=== PATIENT | female | born 1955 | race Hispanic/Latino ===

== ENCOUNTER 2024-12-01 15:44 | Emergency (ER) | payer OTHER ==
[2024-12-01] MEDS ORDERED: BENZONATATE 100 MG CAP PO ONE (16:21)
[2024-12-01 16:43] LABS: Influenza A Ag Negative; Influenza B Ag Negative; SARS-CoV-2 Antigen Rapid Res Negative (Negative)
--- NOTE | 2024-12-01 17:26 | EDPHYS ---
Physician Documentation [facility] Name: Rivka Naik Age: 69 yrs Sex: Female : 1955 Arrival Date: 12/01/2024 Time: 15:44 Bed 13 Private MD: ED Physician Avery Reagan HPI: 12/01 16:20 This 69 yrs old Female presents to ER via Ambulatory with complaints of Ear cp Pain, Congestion, Cough. 16:20 The patient presents with pain, that is acute. The complaints affect the right ear. cp 16:20 Onset: The symptoms/episode began/occurred this past Monday. Associated signs and cp symptoms: Pertinent positives: congestion, sore throat, cough, Pertinent negatives: fever, vomiting, diarrhea. Severity of symptoms: in the emergency department the symptoms are unchanged despite home interventions. Historical: - Allergies: 16:11 STATINS HMG COA REDUCTASE INHIBITORS; aa5 - PMHx: 16:11 Acid Reflux; Depressive disorder; Breast Cancer; aa5 - PSHx: 16:11 Right Mastectomy; Tubal ligation; Cholecystectomy; aa5 - Immunization history:: Adult Immunizations unknown. - Infectious Disease History:: Denies. - Social history:: Smoking status: Patient denies any tobacco usage or history of. ROS: 16:25 Constitutional: Negative for fever, poor PO intake, cp 16:25 ENT: Positive for ear pain, Negative for drainage from ear(s), difficulty swallowing, cp difficulty handling secretions, 16:25 Respiratory: Positive for cough, "sounds productive", Negative for wheezing, 16:25 Abdomen/GI: Negative for abdominal pain, vomiting, diarrhea, constipation, 16:25 Skin: Negative for rash, 16:25 All other systems are negative, Exam: 16:30 Constitutional: The patient appears in no acute distress, alert, awake, cp non-diaphoretic, non-toxic, well developed, well nourished, 16:30 Head/Face: Normocephalic, atraumatic. cp 16:30 Eyes: Periorbital structures: appear normal, Conjunctiva: normal, no exudate, no injection, Sclera: no appreciated abnormality, Lids and lashes: appear normal, bilaterally, 16:30 ENT: External ear(s): are unremarkable, Ear canal(s): are normal, clear, TM's: dullness, bilaterally, Nose: is normal, Mouth: Lips: moist, Oral mucosa: moist, Posterior pharynx: Airway: no evidence of obstruction, patent, erythema, that is mild, exudate, is not appreciated, 16:30 Neck: ROM/movement: Meningeal signs: are not present, nuchal rigidity, is not appreciated, Lymph nodes: no appreciated lymphadenopathy, 16:30 Chest/axilla: Inspection: normal, 16:30 Cardiovascular: Rate: tachycardic, Edema: is not appreciated, 16:30 Respiratory: the patient does not display signs of respiratory distress, Respirations: normal, no use of accessory muscles, no retractions, labored breathing, is not present, Breath sounds: decreased breath sounds, are not appreciated, stridor, is not appreciated, wheezing: is not appreciated, 16:30 Abdomen/GI: Inspection: abdomen appears normal, Palpation: abdomen is soft and non-tender, in all quadrants, 16:30 Skin: no rash present. Vital Signs: 15:49 BP 121 / 70; Pulse 105; Resp 16 S; Temp 98.4(O); Pulse Ox 99% on R/A; Weight 58.97 kg aa5 (R); Height 5 ft. 3 in. (R); 17:00 BP 148 / 78; Pulse 63; Resp 16; Temp 98.3; Pulse Ox 99% ; me1 15:49 Body Mass Index 23.03 (58.97 kg, 160.02 cm) aa5 MDM: 15:55 Medical Screening Exam initiated cp 17:25 Data reviewed: vital signs, nurses notes, lab test result(s), radiologic studies, plain cp films, and as a result, I will discharge patient. 17:25 Differential diagnosis: otitis media, otitis externa, ruptured TM, cerumen impaction, cp pneumonia, influenza, strep throat, COVID-19. I considered the following discharge prescriptions or medication management in the emergency department Medications were administered in the Emergency Department. See MAR. Care significantly affected by the following chronic conditions: Cancer. Counseling: I had a detailed discussion with the patient and/or guardian regarding the historical points, exam findings, and any diagnostic results supporting the discharge/admit diagnosis, lab results, radiology results, to return to the emergency department if symptoms worsen or persist or if there are any questions or concerns that arise at home. Response to treatment: the patient's symptoms have mildly improved after treatment, and as a result, I will discharge patient. 12/01 16:17 Order name: COVID-19 Ag + Flu A+B Ag cp 12/01 16:17 Order name: XRAY Chest Pa And Lat (2 Views) cp Administered Medications: 16:24 Drug: Tessalon Perle PO 200 mg PO once Route: PO; me1 17:30 Follow up: Response: No adverse reaction me1 Disposition: 12/02 16:23 Chart complete. cp 17:32 Co-signature as Attending Physician, Avery Reagan MD I reviewed the patient's care rn provided by the Advanced Practice Provider and agree with the diagnosis and treatment plan. Disposition Summary: 12/01/24 17:25 Discharge Ordered Notes: Location: Home cp Problem: new cp Symptoms: have improved cp Condition: Stable cp Diagnosis - Otalgia, right ear cp - Cough cp Followup: cp - With: Private Physician - When: 2 - 3 days - Reason: Worsening of condition Discharge Instructions: - Discharge Summary Sheet cp - Cough, Adult cp Forms: - Medication Reconciliation Form cp - Antibiotic Education cp - Prescription Opioid Use cp - Patient Portal Instructions cp - Leadership Thank You Letter cp Prescriptions: - albuterol sulfate 90 mcg/actuation Inhalation HFA Aerosol Inhaler - inhale 1 inhalation INHALATION route every 6 hours as needed for bronchospasm; cp administer via ventilator; 1 unit; Refills: 0, Product Selection Permitted - Tessalon Perles 100 mg Oral capsule - take 2 capsule ORAL route every 8 hours As needed; 30 capsule; Refills: 0, cp Product Selection Permitted - Zithromax Z-Mynor 250 mg Oral Tablet - take 1 tablet ORAL route as directed for 5 days Day 1 - take two (2) tablets cp one time. Day 2, 3, 4 , 5 take one (1) tablet once daily.; 6 tablet; Refills: 0, Product Selection Permitted Signatures: Dispatcher [employer] EDMI Avery Reagan MD MD rn Calderon, Audri RN RN aa5 Javier Guerra PA PA cp Aster Gary RN RN me1 Corrections: (The following items were deleted from the chart) 12/01 16: 16:17 Chest Pa And Lat (2 Views)+RAD.RAD.BRZ ordered. EDMI EDMS 16:17 16:17 COVID-19 Ag + Flu A+B Ag+I.LAB.BRZ ordered. EDMS EDMS
--- NOTE | 2024-12-01 17:26 | ER ---
Nurse's Notes [facility] Name: Rivka Naik Age: 69 yrs Sex: Female : 1955 Arrival Date: 12/01/2024 Time: 15:44 Bed 13 Private MD: Diagnosis: Otalgia, right ear;Cough Presentation: 12/01 15:49 Chief complaint: Patient states: headache since Monday. Cough and right ear pain since meMonday. 15:49 Coronavirus screen: cough unrelated to allergies. Ebola Screen: Patient denies travel aa5 to an Ebola-affected area in the 21 days before illness onset. Initial Sepsis Screen: Does the patient meet any 2 criteria? HR > 90 bpm. Does the patient have a suspected source of infection? No. Patient's initial sepsis screen is negative. Risk Assessment: Do you want to hurt yourself or someone else? Patient reports no desire to harm self or others. Onset of symptoms was November 2024. 15:49 Acuity: SCOUT 4 aa5 15:49 Method Of Arrival: Ambulatory aa5 Historical: - Allergies: 16:11 STATINS HMG COA REDUCTASE INHIBITORS; aa5 - PMHx: 16:11 Acid Reflux; Depressive disorder; Breast Cancer; aa5 - PSHx: 16:11 Right Mastectomy; Tubal ligation; Cholecystectomy; aa5 - Immunization history:: Adult Immunizations unknown. - Infectious Disease History:: Denies. - Social history:: Smoking status: Patient denies any tobacco usage or history of. Screenin:16 [facility] ED Fall Risk Assessment (Adult) History of falling in the last 3 months, me1 including since admission No falls in past 3 months (0 pts) Confusion or Disorientation No (0 pts) Intoxicated or Sedated No (0 pts) Impaired Gait No (0 pts) Mobility Assist Device Used No (0 pt) Altered Elimination No (0 pt) Score/Fall Risk Level 0 - 2 = Low Risk Maintained a safe environment, Provided non-skid footwear, Hourly rounding (assess needs \T\ fall precautionary measures) done. Abuse screen: Denies threats or abuse. Nutritional screening: No deficits noted. Tuberculosis screening: No symptoms or risk factors identified. Assessment: 16:16 General: Appears ill, well groomed, well developed, well nourished, Behavior is calm, me1 cooperative, appropriate for age, Reports headache since Monday. Cough and right ear pain since Monday. Pain: Complains of pain in head and right ear pain Pain does not radiate. Pain currently is 6 out of 10 on a pain scale. Quality of pain is described as aching, Pain began gradually, Is continuous. Neuro: Level of Consciousness is awake, alert, obeys commands, Oriented to person, place, time, situation, Appropriate for age Reports headache. Cardiovascular: Patient's skin is warm and dry. Respiratory: Airway is patent Respiratory effort is even, unlabored, Respiratory pattern is regular, symmetrical. Respiratory: Reports cough that is. GI: No signs and/or symptoms were reported involving the gastrointestinal system. : No signs and/or symptoms were reported regarding the genitourinary system. EENT: Reports nasal congestion pain in right ear. Derm: Skin is intact, is healthy with good turgor, Skin is pink, warm \T\ dry. Musculoskeletal: No signs and/or symptoms reported regarding the musculoskeletal system. Vital Signs: 15:49 BP 121 / 70; Pulse 105; Resp 16 S; Temp 98.4(O); Pulse Ox 99% on R/A; Weight 58.97 kg aa5 (R); Height 5 ft. 3 in. (R); 17:00 BP 148 / 78; Pulse 63; Resp 16; Temp 98.3; Pulse Ox 99% ; me1 15:49 Body Mass Index 23.03 (58.97 kg, 160.02 cm) aa5 ED Course: 15:48 Patient arrived in ED. im 15:49 Arm band placed on. aa5 15:55 Javier Guerra PA is PHCP. cp 15:55 Avery Reagan MD is Attending Physician. cp 15:57 Aster Gary, [place] is Primary Nurse. me1 16:15 Triage completed. aa5 16:16 Patient has correct armband on for positive identification. Bed in low position. Call me1 light in reach. Side rails up X2. Provided Education on: POC. Verbalized understanding.. 16:16 No provider procedures requiring assistance completed. me1 16:24 COVID swab sent to lab. Flu and/or RSV swab sent to lab. me1 17:09 XRAY Chest Pa And Lat (2 Views) In Process Unspecified. EDMS 17:41 Patient did not have IV access during this emergency room visit. me1 Administered Medications: 16:24 Drug: Tessalon Perle PO 200 mg PO once Route: PO; me1 17:30 Follow up: Response: No adverse reaction me1 Medication: 16:16 VIS not applicable for this client. me1 Outcome: 17:25 Discharge ordered by MD. cp 17:41 Discharged to home ambulatory, me1 17:41 Condition: stable 17:41 Discharge instructions given to patient, significant other, Instructed on discharge instructions, follow up and referral plans. medication usage, Demonstrated understanding of instructions, follow-up care, medications, Prescriptions given X 3, 17:41 Patient left the ED. me1 Signatures: Dispatcher [employer] Joanna Shi, RN RN aa5 Javier Guerra PA PA Rosario Rg Michelle, RN RN me1 Corrections: (The following items were deleted from the chart) 16:16 15:49 Chief complaint: Patient states: headache since Pranay. Cough and right ear pain me1 since Monday. aa5 17:31 15:49 Coronavirus screen: cough unrelated to allergies, aa5 me1
[2024-12-01 17:46] VITALS: O2SAT 99
[2024-12-01 17:47] VITALS: BP 148/78; TEMP 98.3
--- NOTE | 2024-12-01 18:09 | RAD REPORT ---
EXAMINATION: TWO VIEW CHEST XR CLINICAL INDICATION: Female, 69 years old. [facility] MAIN COUGH Bed Name: 13 TECHNIQUE: 2 view radiographs of the chest were performed. COMPARISON: No prior exam. FINDINGS: The lungs are well inflated and clear. No pneumothorax or sizable effusion. The heart is normal in si ze. Mediastinal contours are unremarkable. IMPRESSION: No acute or significant abnormalities.
== END 2024-12-01 17:41 | disposition home or self-care (01) ==
LOC: ER 15:44
DX: H92.01 Otalgia, right ear (principal); R05.9 Cough, unspecified; Z11.52 Encounter for screening for COVID-19
CPT/HCPCS: 36415; 71046; 87428; 99284